=== PATIENT | female | born 1955 | race Caucasian/White ===

== ENCOUNTER 2022-02-18 15:40 | Emergency (ER) | payer OTHER, BC ==
[2022-02-18] MEDS ORDERED: LIDOCAINE 5% TOPICAL PATCH TP ONE (16:05)
[2022-02-18 16:07] VITALS: BP 134/81; PULSE 75; RESP 20; TEMP 98.7; BMI 29.0
[2022-02-18] MEDS ORDERED: LIDOCAINE 5% TOPICAL PATCH ONE (16:29)
[2022-02-18] MEDS ORDERED: LACTULOSE 20 GM/30 ML UDC (FOR ORAL USE ONLY) PO ONE (16:50)
[2022-02-18] MEDS ORDERED: LACTULOSE 20 GM/30 ML UDC (FOR ORAL USE ONLY) ONE (16:55)
[2022-02-18 17:45] LABS: HEMATOCRIT 34.4 % (32.4-45.2); MCH 29.4 pg (25.7-33.7); MCHC 34.9 g/dl (32.0-36.0); MEAN CELL VOLUME 84.2 fl (80-96); MEAN PLT VOLUME 7.4 fl (7.5-11.1); PLATELET COUNT 331.1 10^3/uL (134-434); RBC 4.09 10^6/uL (3.60-5.2); RDW 15.1 % (11.6-15.6)
[2022-02-18 17:55] LABS: PROTHROMBIN TIME (PATIENT) 11.5 SEC (9.7-13.0)
[2022-02-18 18:02] LABS: ALBUMIN 3.4 g/dl (3.4-5.0); BILIRUBIN,TOTAL 0.5 mg/dl (0.2-1); CALCIUM 8.7 mg/dl (8.5-10); CREATININE 0.7 mg/dl (0.55-1.3); TOT PROT 7.1 g/dl (6.4-8.2)
[2022-02-18 21:44] LABS: PLATELET ESTIMATE ADEQUATE
[2022-02-18] MEDS ORDERED: LIDOCAINE PATCH REMOVAL MC SCH (22:00)
== END 2022-02-18 20:25 | disposition home or self-care (01) ==
LOC: FER 15:40
DX: M79.10 Myalgia, unspecified site (principal)
CPT/HCPCS: 36415; 72070-TC-FY; 74019-TC-FY; 80053; 85027; 85379; 85610; 93005; 99285-25

== ENCOUNTER 2023-07-11 22:16 | Emergency (ER) | payer BC, OTHER ==
[2023-07-11 22:36] VITALS: TEMP 97.6; BMI 32.8
[2023-07-11 22:40] LABS: HEMATOCRIT 39.8 % (32.4-45.2); HEMOGLOBIN 13.1 G/dL (10.7-15.3); MCH 27.5 pg (25.7-33.7); MEAN CELL VOLUME 83.2 fl (80-96); MEAN PLT VOLUME 8.1 fl (7.5-11.1); PLATELET COUNT 284.6 10^3/uL (134-434); RBC 4.78 10^6/uL (3.60-5.2); RDW 15.4 % (11.6-15.6); WHITE BLOOD COUNT 9.8 10^3/uL (4.0-10.8)
[2023-07-11 22:58] LABS: ALBUMIN 4.2 g/dl (3.4-5.0); BILIRUBIN,TOTAL 0.3 mg/dl (0.2-1); CALCIUM 9.7 mg/dl (8.5-10.1); CREATININE 0.8 mg/dl (0.6-1.3); POTASSIUM 3.8 mmol/L (3.5-5.1); TOT PROT 6.8 g/dl (6.4-8.2)
[2023-07-11 23:04] LABS: PLATELET ESTIMATE ADEQUATE
[2023-07-12 00:54] VITALS: BP 129/58; PULSE 70; RESP 18
== END 2023-07-12 02:24 | disposition home or self-care (01) ==
LOC: FER 22:16
DX: R55 Syncope and collapse (principal); R42 Dizziness and giddiness; R11.10 Vomiting, unspecified
CPT/HCPCS: 36415; 80053; 84484; 85027; 93005; 99284-25